=== PATIENT | female | born 1975 | race Caucasian/White ===

== ENCOUNTER 2025-01-11 08:29 | Emergency (ER) | payer BC, SELFPAY ==
[2025-01-11 08:32] VITALS: BP 146/77; PULSE 77; RESP 16; TEMP 36.8; O2SAT 100; BMI 37.8
--- NOTE | 2025-01-11 09:12 | EX.ED.GENINJ ---
HPI History of Present Illness Chief Complaint: Fall Informant: patient Narrative Narrative: 49-year-old female presenting to the with right knee injury. Patient states that yesterday morning she was going down the stairs stepped. She came down onto her right foot and hyperextended the knee. She states that she fell forward but is able to catch herself. Since that time she has had inability to appropriately move the knee. She notes significant swelling and pain with any motion. She states that the toes and the foot feel fine. She notes no prior right knee injury. She has never had right knee surgery. She did have left knee surgery about 15 years ago at [facility] in [place]. She denies other injuries. [facility] Medical History Depressed Anxiety Hypothyroid Hypertension Home Medications ?Medication ?Instructions ?Recorded ?Last Taken ?Type bupropion HCl 100 mg tablet 100 mg PO BID 08/24/15 09/01/15 History ergocalciferol (vitamin D2) 1,250 1,000 unit PO DAILY 08/24/15 Unknown History mcg (50,000 unit) capsule (Vitamin D2) [id number] 6 mg-5 1 ea PO DAILY 08/24/15 Unknown History mg-50 mg-1 mg tablet (L-Methyl-MC) levothyroxine 150 mcg tablet 150 mcg PO DAILY 08/24/15 09/01/15 History ibuprofen 600 mg tablet 600 mg PO Q6H PRN PRN Pain ##60 09/01/15 Unknown Rx epinephrine 0.3 mg/0.3 mL 0.3 ml IM PRN PRN anaphylaxis 01/11/25 Unknown History injection, auto-injector lisinopril 20 mg tablet 20 mg PO DAILY 01/11/25 Unknown History nitrofurantoin macrocrystal 50 mg 50 mg PO QHS 01/11/25 Unknown History capsule oxycodone-acetaminophen 5 mg-325 1 tab PO Q6H PRN pain 3 days #12 01/11/25 Unknown Rx mg tablet (Percocet) tabs Allergy/AdvReac Type Severity Reaction Status Date / Time tree nut Allergy Intermediate Anaphylaxis Verified 01/11/25 08:36 NSAIDS (Non-Steroidal AdvReac Other Verified 01/11/25 08:36 Anti-Inflamma Surgical History H/O knee surgery H/O: hysterectomy Bariatric surgery status Hx of appendectomy Social History Smoking Status: Current every day smoker tobacco type: cigarettes ROS ROS ED Constitutional Constitutional ED: Denies chills, fever(s) or weight loss Eyes Eyes: Denies change in vision or diplopia ENT ENT ED: Denies ear pain, rhinorrhea or sore throat Cardiovascular Cardiovascular: Denies chest pain, orthopnea, palpitations or racing heartbeat Respiratory/Chest Respiratory/Chest: Denies cough, dyspnea or orthopnea Gastrointestinal Gastrointestinal: Denies abdominal pain, diarrhea, nausea or vomiting Genitourinary Genitourinary ED: Denies dysuria, hematuria or urinary frequency Musculoskeletal Musculoskeletal: Reports other Details: See history of present illness ; Denies arthralgias, back pain or myalgias Integumentary Denies abscess or rash Neurologic Neurologic: Denies headache(s), paresthesias or weakness Psychiatric Psychiatric: Denies anxiety, depression, suicidal ideation or suicidal thoughts Endocrine Endocrinology: Denies polydipsia, polyphagia or polyuria Allergic/Immunologic Allergic/Immunologic ED: Denies mouth swelling, tongue swelling or urticaria EXAM Physical Exam Const Vital Signs: 01/11/25 08:32 01/11/25 10:29 Temperature 98.2 F Temperature Source Oral Pulse Rate 77 82 Respiratory Rate 16 Blood Pressure 146/77 H 169/79 H Blood Pressure Mean 100 109 Pulse Ox 100 Oxygen Delivery Method Room Air Positive well nourished and well developed General Appearance ED: well developed and NAD HEENT Reports normocephalic, head/scalp atraumatic and moist mucous membranes Eyes PERRL and EOMs intact bilaterally Neck no lymphadenopathy, supple and no JVD Resp normal respiratory effort and clear to auscultation bilaterally Cardio regular rate, regular rhythm and no murmurs GI normal to inspection, nondistended, normoactive bowel sounds and non-tender Palpation: soft Back/Spine no CVA tenderness and normal ROM Extremity Extremity Narrative: Patient has significant swelling/effusion of the right knee. There is significant guarding which precludes confident ligamentous testing. She is unable to lift it up off the bed. The patella is nontender. Distally I feel a posterior tibial and dorsalis pedis pulse. Toes have excellent capillary refill. She notes some mild tenderness in the proximal right calf. Neurologically the patient appears intact. The joint is not red or hot. Tibial shaft is nontender. General Extremety ED: Negative for edema General Extremity: Negative for edema Neuro oriented x3 and CN's II-XII intact bilaterally Sensorium / Orientation: alert Motor Exam: strength 5/5 throughout Psych mental status grossly normal Mood & Affect: Negative for depressed or tearful Skin no rashes or lesions noted and no wounds MDM MDM MDM Narrative Medical decision making narrative: Differential diagnosis includes but not limited to fracture dislocation neurovascular injury ligamentous injury cartilaginous tear/injury tendon rupture CTA of the lower extremity was obtained to ensure no vascular injury. My independent interpretation of the plain films of the right knee is a comminuted lateral tibial plateau fracture. Patient be placed in a knee immobilizer. She is to be nonweightbearing. I gave oxycodone here in the department and would write for Percocet at home. She needs to follow-up with orthopedics. I spoke with Dr. Sanchez from orthopedics. Patient understands nonweightbearing and follow-up. History & Record Review Discussion w/independent historian: Patient and Significant other Radiography Diagnostic Testing: Clinical Impression(s) from Imaging Studies Lower Extremity CTA 01/11/25 10:09 IMPRESSION: Negative CT angiogram of the right lower extremity without dissection or compromise. Reading [facility] Knee X-Ray 01/11/25 10:16 IMPRESSION: Nondisplaced fracture of the lateral tibial plateau with the joint effusion. Degenerative changes. Reading Location: [facility] Management Discussion w/another healthcare provider: Polymer Scientist (Dr Sanchez) Discharge Plan Triage Chief Complaint: Fall ED Provider: Devon Nair Dx/Rx/DC Orders Clinical Impression: Closed fracture of tibial plateau, Effusion of knee joint right, Hyperextension injury of right knee Instructions: ED Fracture, Knee Prescriptions: New oxycodone-acetaminophen [Percocet] 5-325 mg tablet 1 tab PO Q6H PRN (Reason: pain) 3 Days Qty: 12 0RF No Action bupropion HCl 100 MG tablet 100 mg PO BID Patient Comments: depression levothyroxine 150 MCG tablet 150 mcg PO DAILY Patient Comments: thyroid ergocalciferol (vitamin D2) [Vitamin D2] 50,000 UNIT capsule 1,000 unit PO DAILY Patient Comments: supplement L-Methyl-MC 1 EACH tablet 1 ea PO DAILY Patient Comments: supplement ibuprofen 600 MG tablet 600 mg PO Q6H PRN PRN (Reason: Pain) Qty: 60 1RF Patient Comments: pain/inflammation epinephrine 0.3 mg/0.3 mL auto-injector 0.3 ml IM PRN PRN (Reason: anaphylaxis) nitrofurantoin macrocrystal 50 mg capsule 50 mg PO QHS lisinopril 20 mg tablet 20 mg PO DAILY Primary Care Provider: Sonia Riley,Out of Referrals: Nathan Sanchez DO [Med Staff - Active Staff, Orthopedics] - As soon as possible Referral Note: Or follow-up with orthopedic surgeon of your choice Sonia Riley,Out of [Primary Care Provider, Medical] Activity Restrictions/Additional Instructions: Do not bear any weight on your right leg. Bearing weight may cause the fracture pieces to shift. I highly recommend you follow-up with orthopedics as we need specialty consultation for this fracture/injury. Print Language: Citizen Of [place]
--- NOTE | 2025-01-11 10:09 | CT_ITS ---
PROCEDURE: CTA LWR EXTR W/O W/DYE 01/11/2025 REASON FOR EXAM: POSTERIOR KNEE DISLOCATION TECHNIQUE: Procedure Code: [id number] Modality: CT Procedure: CTA LWR EXTR W/O W/DYE Coronal and Sagittal reconstruction series were provided. CONTRAST: Isovue 370 VOLUME: 75 mL One or more dose reduction techniques were used (e.g., Automated exposure control, adjustment of the mA and/or kV according to patient size, use of iterative reconstruction technique). RADIATION DOSE SUMMARY: CTDlvol: 9.64 mGy DLP: 1252.09 mGycm COMPARISON: None. FINDINGS: Bones: Acute complex nondisplaced fracture of the lateral tibial plate. Joints: Large hemarthroses. No dislocation. Soft Tissues: The right iliac arteries, common femoral, femoral, popliteal, posterior tibial, anterior tibial and peroneal arteries are patent and unremarkable. CT/CTA LWR EXTR W/O & W/DYE IMPRESSION: Negative CT angiogram of the right lower extremity without dissection or compro mise. Reading Location: [id number]
--- NOTE | 2025-01-11 10:16 | RAD_ITS ---
PROCEDURE: KNEE 3 VIEWS 01/11/2025 REASON FOR EXAM: INJURY TECHNIQUE: Procedure Code: RADPAT Modality: DX Procedure: KNEE 3 VIEWS Laterality: Right knee COMPARISON: None FINDINGS: Bones: Nondisplaced fracture of the lateral tibial plateau. Joints: Moderate degenerative changes. Effusion: Moderate joint effusion. Soft tissues: Soft tissue swelling. Other: RAD/Knee 3 Views IMPRESSION: Nondisplaced fracture of the lateral tibial plateau with the joint effusion. Degenerative changes. Reading Location: [facility]
[2025-01-11 10:29] VITALS: BP 169/79; PULSE 82
[2025-01-11 12:10] VITALS: BP 154/74; PULSE 75; RESP 19; TEMP 36.6; O2SAT 100
== END 2025-01-11 12:40 | disposition home or self-care (01) ==
PROVIDERS: Emergency Provider Emergency Medicine; Visit Provider Emergency Medicine
DX: S82.121A Displaced fracture of lateral condyle of right tibia, initial encounter for closed fracture (principal); M25.461 Effusion, right knee; S83.91XA Sprain of unspecified site of right knee, initial encounter; F41.9 Anxiety disorder, unspecified; F32.A Depression, unspecified; F17.210 Nicotine dependence, cigarettes, uncomplicated; W10.9XXA Fall (on) (from) unspecified stairs and steps, initial encounter; Z79.899 Other long term (current) drug therapy
CPT/HCPCS: 73562; 73706; 99284; Q9967; A4216